=== PATIENT | female | born 1955 | race Caucasian/White ===

== ENCOUNTER → 2022-01-16 | Outpatient (CLI) | payer BC ==
--- NOTE | 2022-01-18 07:27 | MM ---
Reason for Exam: Screening (asymptomatic). Last mammogram was performed 10 year(s) and 8 month(s) ago. Patient History: Menarche at age 16. First Full-Term at age 29. Postmenopausal. Sister had breast cancer, age 43. Risk Values: Lydia 5 year model risk: 2.9%. NCI Lifetime model risk: 11.3%. Prior Study Comparison: 11/04/2006 Bilateral Diagnostic Mammogram, [facility]. 06/06/2011 Bilateral Screening Mammogram, [facility]. Tissue Density: The breast tissue is heterogeneously dense. This may lower the sensitivity of mammography. Findings: Analyzed By CAD. Finding 1: Mass. Laterality: Right. 4 mm oval mass demonstrated within the lower outer left breast. This demonstrates circumscribed margin with equal density. No suspicious microscopic calcifications or architectural distortion within either breast. Overall Assessment: Incomplete: need additional imaging evaluation, BI-RAD 0 Management: Diagnostic Mammogram of the left breast. A clinical breast exam by your physician is recommended on an annual basis and results should be correlated with mammographic findings. [facility] will attempt to contact patient to return for supplemental views and ultrasound if indicated. Electronically signed and approved by: Víctor Murrieta D.O.
== END | disposition home or self-care (01) ==
LOC: RADMAMWWP 12:05
PROVIDERS: ATTEND Family Medicine
DX: Z12.31 Encounter for screening mammogram for malignant neoplasm of breast (principal); Z78.0 Asymptomatic menopausal state; Z80.3 Family history of malignant neoplasm of breast
CPT/HCPCS: 77067

== ENCOUNTER → 2022-01-23 | Outpatient (CLI) | payer BC ==
--- NOTE | 2022-01-23 11:01 | MM ---
Reason for Exam: Additional evaluation requested from abnormal screening. Last screening mammogram was performed less than 1 month ago. Patient History: Menarche at age 16. First Full-Term at age 29. Hysterectomy at age 60. Postmenopausal. Sister had breast cancer, age 43. Risk Values: Lydia 5 year model risk: 2.9%. NCI Lifetime model risk: 11.3%. Prior Study Comparison: 11/04/2006 Bilateral Diagnostic Mammogram, [facility]. 11/04/2006 Left Diagnostic Ultrasound, [facility]. 06/06/2011 Bilateral Screening Mammogram, [facility]. 01/16/2022 Bilateral MG screening mammo w CAD, [facility]. Tissue Density: Left: The breast tissue is heterogeneously dense. This may lower the sensitivity of mammography. Findings: Analyzed By CAD. Vague nodular density upper outer quadrant left breast. Overall Assessment: Incomplete: need additional imaging evaluation, BI-RAD 0 Management: Diagnostic Breast Ultrasound of the left breast. A clinical breast exam by your physician is recommended on an annual basis and results should be correlated with mammographic findings. This exam should not preclude additional follow-up of suspicious palpable abnormalities. Results were given to the patient verbally at the time of exam. Electronically signed and approved by: Nilton Bermudez M.D. Radiologis
--- NOTE | 2022-01-23 11:02 | USB ---
Reason for Exam: Additional evaluation requested from abnormal screening. Patient History: Menarche at age 16. First Full-Term at age 29. Hysterectomy at age 60. Postmenopausal. Sister had breast cancer, age 43. Risk Values: Lydia 5 year model risk: 2.9%. NCI Lifetime model risk: 11.3%. Technique: Method: Targeted. Patient Position: Supine. Prior Study Comparison: 11/04/2006 Bilateral Diagnostic Mammogram, [facility]. 06/06/2011 Bilateral Screening Mammogram, [facility]. 01/16/2022 Bilateral MG screening mammo w CAD, [facility]. Findings: The upper outer quadrant of the left breast was scanned. No solid or cystic masses are identified.. Overall Assessment: Probably benign, BI-RAD 3 Management: Diagnostic Mammogram of the left breast in 6 months. A clinical breast exam by your physician is recommended on an annual basis and results should be correlated with mammographic findings. Electronically signed and approved by: Nilton Bermudez M.D. Radiologis
== END | disposition home or self-care (01) ==
LOC: RADMAMWWP 10:10
PROVIDERS: ATTEND Family Medicine
DX: R92.8 Other abnormal and inconclusive findings on diagnostic imaging of breast (principal); Z78.0 Asymptomatic menopausal state; Z80.3 Family history of malignant neoplasm of breast
CPT/HCPCS: 77061; 77065